=== PATIENT | female | born 1955 | race Caucasian/White ===

== ENCOUNTER 2021-08-18 21:16 | Inpatient (IN) | payer MEDICARE, BC ==
[~2021-08-18] VITALS: Ht 170.2 cm; Wt 75.8 kg
--- NOTE | 2021-08-18 21:25 | NUR ---
Pt bib RA straight back to room 2A. Pt connected to bedside monitor, VSS, sz precautions placed on gurney rales. PE WNL, NAD. Pt NSR without ectopy, RRR, normal s1s2 no m/g/r, lungs ctab. pt denies any pain, n/v, sob, dizziness, or discomfort. no s/sxof distress present.
--- NOTE | 2021-08-18 22:00 | NUR ---
EDMD at bedside to eval pt. EDMD performed physical exam. 127/72, 98%RA, 76bpm.
[2021-08-18] MEDS ORDERED: ONDANSETRON 4 MG/2 ML VIAL ONE ×2 (22:13→23:12)
--- NOTE | 2021-08-18 22:18 | NUR ---
Pt vomited a large amt of emesis. Pt given barf bag by EDMD who was at the bedside at the time, 4 mg of zofran given IVP per EDMD. Pt resting comfortably, housekeeping cleaning floors. now.
[2021-08-18 22:23] LABS: HEMATOCRIT 36.1 % (31.2-41.9); MEAN CORPUSCULAR HEMOGLOBIN 29.1 uug (24.7-32.8); MEAN CORPUSCULAR VOLUME 85.2 fL (75.5-95.3); PLATELET COUNT (AUTO) 154 K/uL (179-408)
[2021-08-18] MEDS ORDERED: ONDANSETRON 4 MG/2 ML VIAL IV ONE (22:30)
[2021-08-18 22:35] LABS: ALANINE AMINOTRANSFERASE 21 U/L (14-59); ALKALINE PHOSPHATASE 36 U/L (50-136); ASPARTATE AMINOTRANSFERASE 12 U/L (15-37); BILIRUBIN,DIRECT 0.1 mg/dL (0.0-0.2); BILIRUBIN,TOTAL 0.4 mg/dL (0.2-1.0); CARBON DIOXIDE 26 mmol/L (21-32); CHLORIDE 99 mmol/L (98-107); CREATININE 1.1 mg/dL (0.6-1.3); GLUCOSE 233 mg/dL (74-106); POTASSIUM 4.5 mmol/L (3.5-5.1); UREA NITROGEN, BLOOD 19 mg/dL (7-18)
[2021-08-18 22:37] LABS: ETHANOL < 3 MG/DL (0-0)
[2021-08-18] MEDS ORDERED: PREGABALIN 100 MG CAPSULE PO SCH (23:15)
[2021-08-18] MEDS ORDERED: PREGABALIN 100 MG CAPSULE ONE ×2 (23:18→23:36)
--- NOTE | 2021-08-18 23:21 | NUR ---
EDMD at bedside to discuss findings. EDMD ordered 150mg of lyrica. Pt complaining of nausea, hence, EDMD ordered 4 mg more of zofran. Meds administered per EDMD order.
--- NOTE | 2021-08-18 23:35 | NUR ---
Patient and patient's are unable to recall home medication at this time.
[2021-08-19] MEDS ORDERED: LORAZEPAM 2 MG/1 ML VIAL IV ONE (01:00)
--- NOTE | 2021-08-19 01:15 | NUR ---
EDMD witnessed pt in the midst of a sz, EDMD ordered 2mg ativan IVP stat. Med administered per EDMD order. Pt stopped szing by the time I came back with the ativan. Med administered using 6 rights. Pt tolerated well. Pt resting comfortably
[2021-08-19] MEDS ORDERED: LORAZEPAM 2 MG/1 ML VIAL ONE (01:23)
--- NOTE | 2021-08-19 01:29 | NUR ---
Epic called per EDMD order.
--- NOTE | 2021-08-19 01:33 | NUR ---
Lissy Colbert OPERATIONAL INTELLIGENCE OFFICER called back for epic regarding bed 2a
[2021-08-19 01:36] LABS: *BILIRUBIN,URIN NEGATIVE (NEGATIVE); *BLOOD, URINE 1+ (NEGATIVE); *CLARITY,URINE CLEAR (CLEAR); *COLOR,URINE YELLOW (YELLOW); *KETONES,URINE 2+ (NEGATIVE); *UROBILINOGEN,URINE 0.2 E.U./dl (NORMAL); LEUKOCYTE ESTERASE ,URINE NEGATIVE (NEGATIVE); NITRITE, URINE NEGATIVE (NEGATIVE); UGLUCOSE 1+ (NEGATIVE)
[2021-08-19] MEDS ORDERED: ACETAMINOPHEN 325 MG TABLET PO PRN (01:45)
[2021-08-19] MEDS ORDERED: IV NS 1000 ML 1,000 ML IV PRN (01:45)
[2021-08-19] MEDS ORDERED: LORAZEPAM 2 MG/1 ML VIAL IV PRN (01:45)
[2021-08-19] MEDS ORDERED: REMEDY ESSENTIAL ZINC PASTE 113 GM TP PRN (01:45)
[2021-08-19] MEDS ORDERED: MAGNESIUM HYDROXIDE 30 ML LIQUID UDC PO PRN (01:45)
[2021-08-19] MEDS ORDERED: ONDANSETRON 4 MG/2 ML VIAL IV PRN (01:45)
[2021-08-19 01:48] LABS: BACTERIA,URINE NONE SEEN /HPF (NONE SEEN); SQUAMOUS EPITHELIAL CELL,UR FEW /HPF (NONE SEEN); URIC ACID CRYSTALS,URINE MANY /HPF (NONE SEEN)
[2021-08-19 03:50] VITALS: BP 143/45
--- NOTE | 2021-08-19 03:58 | NUR ---
Report given by charge entry specialist, all admitting paperwork complete, pt is ready to be pushed up to room 311 accepting [facility] Case. Pt tranported by Haile WAN as a favor to me since my pt in 1b was being loaded up to go to [place] comm. by S tranport. Pt transfered to room 311 without incident or difficulty, pt and very greatful for care they received in ED. No sw/sxof distress present.
--- NOTE | 2021-08-19 07:30 | NUR ---
Sleeping, appears comfortable. O2 at 2L/NC. IVF infusing well. Side rails padded. Bed alarm on.
[2021-08-19] MEDS ORDERED: PREGABALIN 100 MG CAPSULE PO SCH (09:00)
[2021-08-19] MEDS ORDERED: PREG75CA PO (11:12)
[2021-08-19] MEDS ORDERED: INSU100V7 SQ (11:12)
[2021-08-19] MEDS ORDERED: INSULIN REGULAR, HUMAN 300 UNIT/3 ML VIAL SQ PRN (11:15)
[2021-08-19] MEDS ORDERED: DEXTROSE 50% 50 ML DISP.SYRIN IV PRN (11:15)
[2021-08-19] MEDS ORDERED: BLOOD SUGAR DIAGNOSTIC 1 EACH STRIP VI SCH (11:30)
--- NOTE | 2021-08-19 13:21 | NUR ---
With discharge order, to home. Patient to follow with Primary physician with appointment at 4 pm at [facility] today, per Tele removed. Saline lock removed. DC instruction given to patient and , verbalized understanding. Discharged per wheelchair in fair condition, not in distress, afebrile.
== END 2021-08-19 13:30 | disposition home or self-care (01) | DRG 101 ==
LOC: ER 21:16 → TELE3 23:59
DX: G40.909 Epilepsy, unspecified, not intractable, without status epilepticus (principal); E11.9 Type 2 diabetes mellitus without complications; Z79.4 Long term (current) use of insulin; Z20.822 Contact with and (suspected) exposure to COVID-19
CPT/HCPCS: 36415; 85025; 93005; A4663; A6213; G0378; G0480; J1815; J2060; J2405; J7040